=== PATIENT | male | born 2005 | race Caucasian/White ===

== ENCOUNTER 2025-10-13 16:25 | Emergency (ER) | payer MEDICAID ==
[~2025-10-13] VITALS: Ht 180.3 cm; Wt 100.0 kg
[2025-10-13 16:33] VITALS: O2SAT 99
[2025-10-13] MEDS: LIDOCAINE HCL/EPINEPHRINE 1%-EPI 1:100,000 20ML VIAL MC ONE (17:32)
[2025-10-13] MEDS: TETANUS, DIPHTHERIA, PERTUSSIS VAC/PF 0.5ML (>10YR OLD) IM ONE (17:38)
[2025-10-13] MEDS: HYDROCODONE/ACETAMINOPHEN 5/325MG TABLET PO ONE (18:30)
[2025-10-13] MEDS ORDERED: CEPH500C2 PO (18:30)
[2025-10-13] MEDS ORDERED: CEPH500T MT (18:33)
[2025-10-13] MEDS ORDERED: SULF1TAB48 MT (18:34)
[2025-10-13] MEDS ORDERED: ACET-2708 MT (18:35)
[2025-10-13 18:48] VITALS: BP 118/78; PULSE 76; RESP 18; TEMP 36.6; O2SAT 99
== END 2025-10-13 18:49 | disposition home or self-care (01) ==
LOC: ER 16:25
DX: L02.511 Cutaneous abscess of right hand (principal); Z79.899 Other long term (current) drug therapy
CPT/HCPCS: 90715; 10060; 90471; 99283; J2004; Z7610 ×3